=== PATIENT | female | born 1980 ===

== ENCOUNTER 2021-12-26 09:59 | Day surgery (SDC) | payer OTHER, SELFPAY ==
[2021-12-20 12:04] VITALS: BMI 39.2
--- NOTE | 2021-12-25 13:38 | HO.ANESPROP2 ---
Documented by User: Marita Juárez NP 12/25/21 13:39 HPI - Anesthesia Eval Consult details Narrative: 41yo F for Upper Endoscopy s/p gastric sleeve [facility] Past Medical History Medical History (Updated 12/20/21 @ 11:59 by María Bryson RN) Anxiety Asthma GERD (gastroesophageal reflux disease) Hiatal hernia HTN (hypertension) Surgical History Surgical History (Updated 12/20/21 @ 11:59 by María Bryson RN) History of repair of hiatal hernia History of sleeve gastrectomy Hx of abdominal surgery Hx of cervical discectomy Hx of section Hx of cholecystectomy Hx of laparoscopic gastric banding Social History Social History (Updated 12/20/21 @ 12:00 by María Bryson RN) Patient Tobacco Use Status: Former Tobacco user Quit Date: 2006 Tobacco use type: Cigarette Use of substances other than those prescribed or required for medical reasons: No Are you DNR?: No Advance Directives: No Advance Directives Information Provided: Yes Meds Allergies Allergy/AdvReac Type Severity Reaction Status Date / Time No Known Allergies Allergy Unverified 01/06/20 17:06 Home Medications Medication Instructions Recorded Confirmed Last Taken Type bupropion HCl 12/20/21 Unknown History clonazepam 1 mg tablet 1 mg PO BEDTIME 12/20/21 12/20/21 Unknown History omeprazole 20 mg capsule,delayed 40 mg PO DAILY 12/20/21 12/20/21 Unknown History release prazosin 1 mg capsule 1 mg PO BEDTIME 12/20/21 12/20/21 Unknown History Exam Exam Date and Time: December 25, 2021 1338 Height,Weight and Vital Signs: Height 5 ft Weight 91.172 kg Assessment and Plan Assessment Anesthesia Assessment: Chart Reviewed Documented by User: Nicolas Ibarra MD 12/26/21 10:46 [facility] Past Medical History Medical History (Updated 12/20/21 @ 11:59 by María Bryson RN) Anxiety Asthma GERD (gastroesophageal reflux disease) Hiatal hernia HTN (hypertension) Patient : No Family History Family history of problems with anesthesia: No Surgical History Surgical History (Updated 12/20/21 @ 11:59 by María Bryson RN) History of repair of hiatal hernia History of sleeve gastrectomy Hx of abdominal surgery Hx of cervical discectomy Hx of section Hx of cholecystectomy Hx of laparoscopic gastric banding History of Problems with Anesthesia: No Social History Social History (Updated 12/20/21 @ 12:00 by María Bryson RN) Patient Tobacco Use Status: Former Tobacco user Quit Date: 2006 Tobacco use type: Cigarette Use of substances other than those prescribed or required for medical reasons: No Are you DNR?: No Advance Directives: No Advance Directives Information Provided: Yes Meds Allergies Allergy/AdvReac Type Severity Reaction Status Date / Time No Known Allergies Allergy Unverified 01/06/20 17:06 Home Medications Medication Instructions Recorded Confirmed Last Taken Type bupropion HCl 12/20/21 Unknown History clonazepam 1 mg tablet 1 mg PO BEDTIME 12/20/21 12/20/21 Unknown History omeprazole 20 mg capsule,delayed 40 mg PO DAILY 12/20/21 12/20/21 Unknown History release prazosin 1 mg capsule 1 mg PO BEDTIME 12/20/21 12/20/21 Unknown History Exam Airway Mallampati Class: II TM Dist: <=3cm Neck ROM: Full Loose/Missing/Broken Teeth: No Heart: ok Lungs: ok Assessment and Plan Assessment Anesthesia Assessment: Anesthesia Plan Discussed and Chart Reviewed Final Anesthetic Review Family History of Problems with Anesthesia: No History of Problems with Anesthesia: No NPO: Yes ASA Class: II Final Preanesthetic Review: No Changes in Pt Med Stat, Meds/Allgs Chart Reviewed, Consent Obtained/Reviewed and Anes Risks/Benef Reviewed Patient Risk: Intermediate Procedure Risk: Intermediate Anesthetic Plan Anesthetic Plan: MAC: and Agree w/ Assess. and Plan Disposition: Standard PACU
[2021-12-26 10:20] VITALS: BP 119/81; PULSE 73; RESP 16; TEMP 36.3; O2SAT 98
[2021-12-26] MEDS: Lactated Ringers 1,000 ML 100 ML IVCONT (10:33)
[2021-12-26 10:43] LABS: UPreg QC Valid YES; Urine Pregnancy NEGATIVE (NEGATIVE)
[2021-12-26 11:55] VITALS: BP 80/55; PULSE 105; RESP 16; TEMP 36.3; O2SAT 92
--- NOTE | 2021-12-26 11:59 | PM.OP ---
Brief Operative Note Date of Service: 12/26/21 Pre-op diagnosis: GERD Post-op diagnosis: other (Reflux esophagitis, Gastritis, Hiatal hernia) Procedure: EGD with biopsies Surgeon: Alireza Hickey Anesthesia: MAC Was an [employer] used for this Procedure?: No Estimated blood loss (mL): 2.0 Pathology: other (A. Gastric antrum B. EG Junction at 32cm) Condition: stable Disposition: PACU
[2021-12-26 12:10] VITALS: BP 112/73; PULSE 75; RESP 16; O2SAT 98
[2021-12-26] MEDS: Acetaminophen 325 MG TABLET 650 MG PO (12:14)
[2021-12-26 12:25] VITALS: BP 129/85; PULSE 76; RESP 18; TEMP 36.3; O2SAT 98
--- NOTE | 2021-12-26 13:39 | OP_ITS ---
12/26/2021 SURGEON: Alireza Hickey MD INDICATIONS: The patient presents for evaluation of chronic gastroesophageal reflux. Full consent has been obtained from her for this, including risks of bleeding and perforation. PREOPERATIVE DIAGNOSIS: Chronic gastroesophageal reflux. POSTOPERATIVE DIAGNOSIS: Chronic gastroesophageal reflux, hiatal hernia, reflux esophagitis, gastritis. PROCEDURE PERFORMED: Esophagogastroduodenoscopy with biopsies. ESTIMATED BLOOD LOSS: COMPLICATIONS: ANESTHESIA: Preop medication used, monitored anesthesia care. ASSISTANTS: SPECIMENS: DESCRIPTION OF PROCEDURE: The patient was placed in the left lateral decubitus position. The Olympus video gastroscope was passed in the posterior oropharynx and upper esophagus under direct vision. The scope was passed slowly to the distal esophagus. The gastroesophageal junction appeared at 32 cm. There was evidence of irregularity, edema, friability, and short, less than 10 mm erosions. There was no ulceration, mass, nor stricture. The scope entered the stomach. There was a small hiatal hernia. The scope was advanced to the pylorus and the duodenum was cannulated to the descending portion. The duodenum including the bulb appeared normal without mass or ulceration. The scope was withdrawn back in the stomach. The gastric antrum had some areas of gastritis with some less than 10 mm erosions. There was no ulceration nor mass. There was good peristalsis. Biopsies were obtained from the gastric antrum. Extending from the mid antrum to the proximal stomach was a linear scar consistent with her sleeve gastrectomy along the greater curvature. I was able to retroflex the scope visualizing the proximal stomach carefully, which appeared normal, without any sign of mass or ulceration. I did not visualize any definitive evidence of a wrap. The scope was straightened and withdrawn back to the esophagus. Multiple biopsies were obtained at the gastroesophageal junction at 32 cm. Proximal to this, the esophageal mucosa appeared normal. The scope was withdrawn from the patient. She tolerated the procedure well and was returned to the recovery area in stable condition. IMPRESSION: 1. Hiatal hernia, gastroesophageal reflux, reflux esophagitis. 2. Gastritis. PLAN: The results of the biopsies will be checked. She reports that she is presently using omeprazole 40 mg twice a day with good relief of her reflux. She was advised not to use any aspirin or NSAIDs long-term. She was advised to continue her omeprazole. If H pylori is present in the gastric biopsies, I would recommend treating that at some point. She was advised to see me in several months for a followup visit. Given that she has already had 2 other gastric surgeries, I would not recommend any further surgery in regard to her reflux and hiatal hernia as long as her symptoms are being controlled with medication. MD GENNARO Brandt/REBECA / [id number] MTDD
== END 2021-12-26 13:23 | disposition home or self-care (01) ==
PROVIDERS: Nurse Practitioner; Visit Provider Internal Medicine
PROC: 0DJ08ZZ Inspection of Upper Intestinal Tract, Via Natural or Artificial Opening Endoscopic (ICD-10-PCS; CPT 43235; principal; 2021-12-26 11:30)
DX: K21.00 Gastro-esophageal reflux disease with esophagitis, without bleeding (principal); K29.50 Unspecified chronic gastritis without bleeding; K44.9 Diaphragmatic hernia without obstruction or gangrene; I10 Essential (primary) hypertension; J45.909 Unspecified asthma, uncomplicated; Z79.899 Other long term (current) drug therapy; Z98.84 Bariatric surgery status; Z90.49 Acquired absence of other specified parts of digestive tract; Z98.890 Other specified postprocedural states; Z87.891 Personal history of nicotine dependence
CPT/HCPCS: 43239; 81025; 88305; 88342

== ENCOUNTER → 2022-09-17 15:31 | Outpatient (BNVA) | payer OTHER, SELFPAY | PROVIDERS: Visit Provider Neurological Surgery ==

== ENCOUNTER 2022-11-11 10:31 | Outpatient (REF) | payer OTHER, SELFPAY ==
--- NOTE | ~2022-11-11 | MR_ITS ---
EXAMINATION: MR LUMBAR SPINE WITHOUT CONTRAST CLINICAL INFORMATION: Leg numbness, bilateral hand numbness, low back pain COMPARISON: None TECHNIQUE: MRI of the lumbar spine was obtained using routine sequences without contrast. FINDINGS: Mildly motion degraded examination. Trace levocurvature of the mid to lower lumbar spine. Normal lumbar lordosis is preserved. No significant spondylolisthesis. Vertebral body heights are maintained. There is no suspicious osseous lesion. Multilevel disc desiccation with preserved disc height. Mild stress related edema within the bilateral L4 and L5 pedicles. Suggestion of mild spinal canal narrowing on the basis of short pedicles with level by level detail as follows: L1-L2: Mild bilateral facet arthrosis. Mild spinal canal narrowing. No neural foraminal stenosis. L2-L3: Mild to moderate bilateral facet arthrosis with ligamentum flavum thickening. Mild spinal canal narrowing without neural foraminal stenosis. L3-L4: Shallow annular disc bulge and moderate bilateral facet arthrosis with ligamentum flavum thickening. 9 mm extracanalicular synovial cyst projecting posteriorly off the right facet joint into the right paraspinal soft tissues. Mild spinal canal narrowing and minimal left without right neural foraminal encroachment. L4-L5: Advanced right greater than left facet arthrosis with ligamentum flavum thickening and shallow annular disc bulge. Small right facet joint effusion. No spinal canal stenosis. Minimal bilateral neural foraminal encroachment. L5-S1: Shallow annular disc bulge with moderate to advanced left greater than right facet arthrosis. No spinal canal or neural foraminal stenosis. The conus medullaris terminates at the level of T12. The distal spinal cord is normal in appearance. . No epidural fluid collection, hematoma, or mass. There is mild fatty atrophy of the paraspinal musculature. Left renal cysts not requiring further imaging follow-up. The abdominal aorta is of normal contour and caliber. MR/MR lumbar spine wo con IMPRESSION: Suggestion of mild spinal canal narrowing on the basis of short pedicles superimposed mild spondylosis. No high-grade spinal canal or neural foraminal stenosis at any level. Multilevel mild spinal canal narrowing. Advanced facet arthropathy in the mid to lower lumbar spine with mild stress related edema within the bilateral L4 and L5 pedicles
== END 2022-11-11 10:32 | disposition home or self-care (01) ==
LOC: HO.MRI 10:31
PROVIDERS: Visit Provider Neurological Surgery
DX: G58.8 Other specified mononeuropathies (principal); M54.9 Dorsalgia, unspecified
CPT/HCPCS: 72148

== ENCOUNTER 2022-11-26 14:57 | Outpatient (REF) | payer OTHER, SELFPAY ==
--- NOTE | ~2022-11-26 | XR_ITS ---
EXAMINATION: XR LUMBOSACRAL SPINE WITH OBLIQUES CLINICAL INFORMATION: Dorsalgia COMPARISON: None available. TECHNIQUE: AP, both oblique, and lateral views of the lumbar spine. Lateral view of the lumbosacral junction. FINDINGS: There is normal lumbar lordosis. The vertebral heights, alignment and disc heights are normal. There is no visible acute fracture, dislocation or subluxation. No bony erosive changes. The soft tissues are normal. XR/XR lumbar spine 4V min IMPRESSION: Unremarkable lumbar spine exam.
== END 2022-11-26 14:58 | disposition home or self-care (01) ==
LOC: HO.HOSX 14:57
PROVIDERS: Visit Provider Neurological Surgery
DX: M54.9 Dorsalgia, unspecified (principal); R20.0 Anesthesia of skin; R20.2 Paresthesia of skin
CPT/HCPCS: 72110; 99212

== ENCOUNTER 2022-11-26 15:24 | Outpatient (AMB) | payer OTHER, SELFPAY ==
--- NOTE | 2022-11-26 16:05 | A.SPINEOV_ITS ---
Intake Intake Visit Reasons: MRI follow up Intake Note: Ms. Woodall is here today to f/u re: MRI also had x-rays done today. Net Trainer Required: No Allergies No Known Allergies Allergy (Unverified 01/06/20 17:06) Assessment & Plan Assessment & Plan (1) Numbness and tingling of both upper extremities: Code(s): R20.0 - Anesthesia of skin; R20.2 - Paresthesia of skin Plan Dear colleague, On 11/26/2022, Ms. Woodall came for follow-up to review the MRI of the lumbar spine and EMG results. The MRI of the lumbar spine, x-ray of the lumbar spine and EMG results were all normal. She states that the pain on the right side of her ribcage has disappeared in the meantime. Her main complaint today is numbness down her arms it increases with flexion. I told I would order an MRI of the cervical spine to make sure that the spinal cord is well decompressed. If this comes back normal then this is a residual symptom of her cervical myelopathy. Manoj Morse MD, PhD Spine [facility] Trained Neurosurgeon Director, [facility] Orders: Orders XR lumbar spine 4V min Today M54.9 - Dorsalgia, unspecified Coding Level of Care Code Est Pt Level 2 (73806) Diagnoses Numbness and tingling of both upper extremities R20.0; R20.2
== END 2022-11-26 16:25 | disposition home or self-care (01) ==
PROVIDERS: Visit Provider Neurological Surgery
DX: R20.0 Anesthesia of skin (principal); R20.2 Paresthesia of skin
CPT/HCPCS: 99212

== ENCOUNTER 2023-01-20 13:36 | Outpatient (REF) | payer OTHER, SELFPAY ==
--- NOTE | ~2023-01-20 | MR_ITS ---
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 Self-reported neck pain with right arm numbness and bilateral finger numbness or weakness. COMPARISON: None available. TECHNIQUE: MRI of the cervical spine was obtained using routine sequences with and without contrast. Intravenous contrast: Gadavist 9 mL. FINDINGS: Alignment: The cervical spine is anatomically aligned. Craniocervical Junction/C1-C2 Articulations: The atlantooccipital joints are intact and aligned bilaterally. There is mild retrolisthesis of the left C1-C2 facet joint which is nonspecific and could be secondary to some degree of head rotation. Visualized Intracranial Structures: Within normal limits. Vertebral Bodies: Vertebral body heights are well maintained. Disc Spaces and Endplates: There is ferromagnetic artifact partially obscuring the C5-C6 and C6-C7 levels consistent with previous ACDF procedures. Otherwise, the visualized intervertebral disc space heights and signal are well maintained. No significant spondylosis. Bone Marrow: Limited study due to metallic hardware artifact obscuring the C5, C6 and C7 levels. Within these limitations, no suspicious marrow replacing process or bone marrow edema is identified. No abnormal marrow enhancement is seen either above C5 or inferior to C7. Cannot evaluate for possible abnormal enhancement at C5-C6 and C6-C7 due to metallic hardware artifact. C2-C3: No disc herniation or canal stenosis. No significant DJD or neural foraminal stenosis. C3-C4: No disc herniation or canal stenosis. No significant DJD or neural foraminal stenosis. C4-C5: Small central disc protrusion with minimal indentation of the ventral thecal sac without cord impingement or canal stenosis. Minor uncinate process spurring noted on the left without significant facet arthrosis, with mild left-sided neural foraminal stenosis and a 7 mm perineural cyst in the outer left neural foramen. There is also a 6 mm cystic structure at the lateral aspect of the left facet joint which may reflect a synovial or ganglion cyst with no associated neural encroachment. C5-C6: Status post ACDF with posterolateral osteophytic ridging and mild flattening of the dural sac asymmetric to the left without cord impingement or canal stenosis. Mild uncinate process hypertrophic changes noted, left more than right with slight left-sided neural foraminal narrowing. C6-C7: Status post ACDF, with posterolateral disc osteophyte complex and flattening of the ventral dural sac without cord impingement. There is mild central canal stenosis. Mild bony productive changes are seen laterally with [id number] left and mild right-sided neural foraminal narrowing. C7-T1: No disc herniation or canal stenosis. Mild ligamentum flavum thickening noted with mild facet arthropathy bilaterally without significant neural foraminal stenosis. T1-T2: No disc herniation or canal stenosis. Minor facet arthropathy noted bilaterally without significant neural foraminal stenosis. Spinal Cord: The cervical and visualized upper thoracic spinal cord is normal in signal intensity throughout, without focal lesion, edema or syrinx and no abnormal spinal cord or leptomeningeal enhancement. Slight ventral cord flattening is noted at the C5-C6 asymmetric to the right consistent with a minimal degree of myelomalacia. Extracranial Soft Tissues: The visualized extracranial head/neck soft tissues are unremarkable within the limitations of the study. Signal voids are seen in the major arterial and venous structures. No prevertebral soft tissue edema/swelling or abnormal soft tissue enhancement. MR/MR cervical spine wo/w con IMPRESSION: 1. Status post ACDF procedures at C5-C6 and C6-C7 as discussed above with posterolateral disc osteophyte complex at C6-C7 with mild central canal stenosis, [id number] left and mild right-sided neural foraminal stenosis at this level. Slight left-sided bony neural foraminal narrowing at C5-C6. No neural impingement. 2. Small central disc protrusion at C4-C5 without cord impingement or canal stenosis. Minor uncinate process spurring on the left at this level with mild left-sided neural foraminal stenosis and a small synovial or ganglion cyst at the lateral aspect of the left facet joint without neural encroachment. 3. Slight degree of myelomalacia on the right at C5-C6 with otherwise normal appearance to the spinal cord. No abnormal spinal cord or leptomeningeal enhancement.
[2023-01-20] MEDS: gadobutroL 10 ML VIAL IVPUSH (14:33)
== END 2023-01-20 13:37 | disposition home or self-care (01) ==
LOC: HO.MRI 13:36
PROVIDERS: Visit Provider Neurological Surgery
DX: R20.0 Anesthesia of skin (principal); R20.2 Paresthesia of skin; Z98.1 Arthrodesis status
CPT/HCPCS: 72156; A9585

== ENCOUNTER 2024-02-12 19:38 | Emergency (ER) | payer OTHER, SELFPAY ==
--- NOTE | ~2024-02-12 | XR_ITS ---
EXAMINATION: XR CERVICAL SPINE CLINICAL INFORMATION: Pain, prior hardware. COMPARISON: MR cervical spine 01/20/2023. TECHNIQUE: 3 views of the cervical spine were obtained. FINDINGS: Redemonstration of ACDF at C5-C6 and C6-C7. No evidence of hardware fracture or increased gerhard-hardware lucency. No acute fracture or subluxation. Prominent anterior osteophytes at C5-C6 and C6-C7. Multilevel intervertebral disc height loss and uncovertebral hypertrophy better characterized on prior MRI. No peritoneal soft tissue thickening. Included portions of the lung apices are clear. XR/XR cervical spine 3V IMPRESSION: 1. ACDF at C5-C6 and C6-C7 without evidence of hardware failure or loosening. 2. No acute fracture or subluxation. Electronically signed by: Maria L Mills MD 02/12/2024 09:34 PM EDT
[2024-02-12 19:58] VITALS: BP 116/79; PULSE 101; RESP 18; TEMP 36.9; O2SAT 98; BMI 34.4
--- NOTE | 2024-02-12 20:00 | ED.GENADULT ---
HPI - General Adult General Chief complaint: General Medical Stated complaint: dizzy/neck pain Time Seen by Provider: 02/12/24 22:57 Source: patient Mode of arrival: ambulatory Limitations: no limitations History of Present Illness ED Provider: DR. Carter HPI narrative: 43-year-old female came in for evaluation of multiple symptoms. Patient s/p cervical spinal fusion many years ago presented today with right-sided neck pain and feeling dizzy, pain is shooting to the back of the head, no injury, no fall, no heavy lifting. Patient also is complaining of frequency urination with dysuria and burning sensation with urination. No fever, no chills, no photophobia, no weakness, no numbness. Related Data Home Medications ?Medication ?Instructions ?Recorded ?Confirmed bupropion HCl 12/20/21 clonazepam 1 mg tablet 1 mg PO BEDTIME 12/20/21 12/20/21 omeprazole 20 mg capsule,delayed 40 mg PO DAILY 12/20/21 12/20/21 release prazosin 1 mg capsule 1 mg PO BEDTIME 12/20/21 12/20/21 Previous Rx's ?Medication ?Instructions ?Recorded cefuroxime axetil 500 mg tablet 500 mg PO BID #14 tabs 02/12/24 cyclobenzaprine 10 mg tablet 10 mg PO TID PRN muscle spasm #10 02/12/24 tabs ibuprofen 600 mg tablet 600 mg PO Q8H PRN pain #14 tabs 02/12/24 Allergies Allergy/AdvReac Type Severity Reaction Status Date / Time No Known Allergies Allergy Verified 02/12/24 19:59 Review of Systems Review of Systems: All other systems are reviewed and are negative Constitutional: Reports as per HPI and Reports no additional constitutional complaints Eyes: Reports as per HPI and Reports no additional eye complaints Reports system reviewed and no additional complaints, except as documented Cardiovascular: Reports as per HPI and Reports no additional cardiovascular complaints Respiratory: Reports as per HPI and Reports no additional respiratory complaints Gastrointestinal: Reports as per HPI and Reports no additional gastrointestinal complaints Genitourinary: Reports no additional female genitourinary complaints Musculoskeletal: Reports no additional musculoskeletal complaints Skin/Breast: Reports system reviewed and no additional complaints, except as docu Psychiatric: Reports no additional psychiatric complaints Endocrine: Reports no additional endocrine complaints Hematologic/Lymphatic: Reports no additional hematologic/lymphatic complaints Allergic/Immunologic: Reports no additional allergic/immunologic complaints Reports system reviewed and no additional complaints, except as documented and Reports Abnormal speech present [facility] Past Medical History Medical History Anxiety Asthma HTN (hypertension) Hiatal hernia GERD (gastroesophageal reflux disease) Surgical History Hx of laparoscopic gastric banding Hx of abdominal surgery Hx of cervical discectomy Hx of section Hx of cholecystectomy History of repair of hiatal hernia History of sleeve gastrectomy Social History Social History Comment: medicated in pACU Patient Tobacco Use Status: Former Tobacco user Tobacco use type: Cigarette Advance Directives: No Advance Directives Information Provided: No Do you have a plan to hurt others: No Plan Physical Exam ED Vital Signs: Vital Signs - 24 hr 02/12/24 19:58 02/12/24 22:18 Temperature 98.4 F 98.3 F Pulse Rate 101 H 85 Respiratory Rate 18 16 Blood Pressure 116/79 96/66 Pulse Oximetry 98 96 Oxygen Delivery Method Room Air Room Air BMI result Body Mass Index 34.4 Vital signs have been reviewed and appear to be correct. Blood pressure elevated. Heart rate normal. Respiratory rate normal. Temperature normal. Oxygen saturation normal. Appearance: Alert. Oriented X3. No acute distress. Head: Normal external exam. Normocephalic. Atraumatic. No Valdivia signs noted. No raccoon eyes noted Eyes: PERRLA. EOMI. Conjunctiva and sclera normal. Eyelids normal. ENT: TM's Normal. Pharynx normal. Uvula midline. Moist mucous membranes. No trismus noted. No drooling noted. No muffled voice noted. Neck: Normal inspection. Neck supple. Spasm of right sternocleidomastoid muscle, Bilateral neck muscle FROM. No adenopathy. Thyroid Normal. No meningeal signs. No neck mass noted. CVS: Normal heart rate and rhythm. Heart sound normal. No murmurs noted. Pulses normal throughout. Respiratory: No respiratory distress. Painless inspiration. Breath sounds normal. No wheezes/rales/rhonchi noted. Chest nontender. No accessory muscle usage noted or decreased air movement noted. Abdomen: Soft and nontender. Bowel sounds normal in all 4 quadrants. No distention noted. No organomegaly noted. No visible injury noted. Back: No CVA tenderness. Full range of motion noted. Skin: Skin warm and dry. Normal skin color. Normal skin turgor. No rashes/lesions/lacerations noted. Extremities: No lower extremity edema. Extremities exhibit normal range of motion. Extremities nontender. Neuro: Oriented X 3. Cranial nerve exam: II-XII are grossly intact No motor deficit. No sensory deficit. Reflexes normal. Cerebellar exam: No [id number] dysmetria, able to walk toe to heel unsteady gait. Course Course Course Narrative: RME, this is a rapid medical exam performed by Luiz Bowles please refer to primary provider for complete H&P- 43 year old female presents for evaluation neck pain, She has previous c5/c6 and c6/c7 fusion with most recent MRI last year in January of 2023. Denies any specific injury but reports worsening pain and stiffness with radiating headache. Plan for x-yra to evaluate for hardware failure. Reevaluation(s) Reevaluation #1: 1. Cervical spine muscular spasm and pain, no fever, no chills, no photophobia neck is supple on exam, normal neuro exam including detail through the exam, patient's symptoms is likely due to muscular spasm. Cervical spine x-ray show hardware failure. 2. Dysuria, frequency urination UA is reflecting UTI will start on cefuroxime patient was instructed to drink plenty of fluids. 3. Instructed to return if any weakness or numbness of upper extremities. Time: 23:16 Medical Decision Making Differential Diagnosis Differential Diagnoses: The differential diagnosis associated with the presentation includes (Cervical hardware failure, myofascial cervical spasm, meningitis, UTI, electrolyte derangement, severe anemia.) Lab Data MDM Lab Attestation statement: I reviewed the patient's lab results. 02/12/24 21:35 02/12/24 21:35 Labs: Lab Results 02/12/24 02/12/24 Range/Units 21:20 21:35 WBC 3.3 L (4.8-10.8) X10*3/uL RBC 4.96 (4.20-5.50) X10*6/uL Hgb 11.9 L (12.0-16.0) g/dl Hct 39.0 (37.0-47.0) % MCV 78.6 L (80.0-98.0) fL MCH 24.0 L (27.0-33.0) pg MCHC 30.5 L (31.0-35.0) g/dl RDW 14.6 (11.0-16.0) % Plt Count 225 (160-400) X10*3/uL MPV 8.9 L (9.4-12.3) fL Immature Gran % (Auto) 0.0 (0.0-0.4) % Neut % (Auto) 49.6 (45-73) % Lymph % (Auto) 29.5 (20-40) % [place] % (Auto) 15.1 H (2-11) % Eos % (Auto) 5.2 H (0-4) % Baso % (Auto) 0.6 (0-2) % Lymph # (Auto) 1.0 L (1.2-4.9) X10*3/uL [place] # (Auto) 0.5 (0.1-1.2) X10*3/uL Eos # (Auto) 0.2 (0.0-0.4) X10*3/uL Baso # (Auto) 0.0 (0.0-0.2) X10*3/uL Abs Immat Gran (auto) 0.00 (0.00-0.03) X10*3/uL Absolute Neuts (auto) 1.6 L (2.0-8.3) x10*3/uL Absolute Nucleated RBC 0.000 (0.0-0.012) X10*3/uL Nucleated RBC % (auto) 0.0 (0.0-0.2) /100WBC Sodium 140 (135-145) mmol/L Potassium 3.7 (3.3-5.1) mmol/L Chloride 108 (96-108) mmol/L Carbon Dioxide 25 (22-29) mmol/L Anion Gap 11 L (12-20) BUN 8 L (9-16) mg/dL Creatinine 0.70 (0.5-1.4) mg/dL Estim Creat Clear Calc 96.8 Estimated GFR > 60 Random Glucose 96 (60-115) mg/dL Calcium 9.0 (8.4-10.2) mg/dL Total Bilirubin 0.1 (0.0-1.0) mg/dL AST 65 H (5-31) U/L ALT 74 H (0-31) U/L Alkaline Phosphatase 130 H (39-117) U/L Total Protein 7.7 (6.5-8.0) g/dL Albumin 4.2 (3.5-5.0) g/dL Lipase 15 (8-78) U/L Urine Color Yellow Urine Appearance Clear Urine pH 5.5 (5.0-9.0) Ur Specific [place] 1.020 (1.005-1.025) Urine Protein Negative (Neg-Trace) mg/dL Urine Glucose (UA) Negative (Negative) mg/dL Urine Ketones Negative (Negative) mg/dL Urine Blood Small (1+) H (Negative) Urine Nitrite Positive H (Negative) Ur Leukocyte Esterase Small (1+) H (Negative) Urine RBC 0-2 (0-2) /HPF Urine WBC 11-20 H (0-5) /HPF Ur Squamous Epith Cells 3-5 (0-2) /HPF Urine Bacteria 4+ (None Seen) Hyaline Casts 0-2 (0-2) /LPF Independent Interpretation I performed an independent interpretation of an: Plain X-Ray (Cervical spine:1. ACDF at C5-C6 and C6-C7 without evidence of hardware failure or loosening. 2. No acute fracture or subluxation. ) Radiology Impression Discussion of test interpretation with radiology: I have reviewed the radiologist's reading. Discharge Plan Discharge Clinical Impression: Cervical spine pain, UTI (urinary tract infection) Patient Disposition: Home, Self-Care Instructions: Urinary Tract Infection in Women (DC), Neck Pain (ED) Additional Instructions: Follow-up with your primary physician Prescriptions: New cefuroxime axetil 500 mg tablet 500 mg PO BID Qty: 14 0RF cyclobenzaprine 10 mg tablet 10 mg PO TID PRN (Reason: muscle spasm) Qty: 10 0RF ibuprofen 600 mg tablet 600 mg PO Q8H PRN (Reason: pain) Qty: 14 0RF No Action prazosin 1 mg Capsule 1 mg PO BEDTIME clonazepam 1 mg Tablet 1 mg PO BEDTIME Rx Instructions: administer 30 minutes before bedtime omeprazole 20 mg Capsule,Delayed Release(Dr/Ec) 40 mg PO DAILY bupropion HCl Print Language: Emirati
[2024-02-12 21:27] LABS: Appearance Urine Clear; Color Urine Yellow; Glucose Urine UA Negative (Negative); Leukocyte Esterase Urine Small (1+) (Negative); Nitrite Urine Positive (Negative); PH 5.5 (5.0-9.0); UMIC TRIGGER UACC YES; Urine Blood Small (1+) (Negative); Urine Ketones Negative (Negative); Urine Protein Negative (Neg-Trace)
[2024-02-12 21:39] LABS: Bacteria Urine 4+ (None Seen); Hyaline Casts Urine 0-2 /LPF (0-2); RBC Urine 0-2 /HPF (0-2); UACC Culture Trigger YES
[2024-02-12 21:40] LABS: Basophils Percent Auto 0.6 % (0-2); Eosinophils Absolute Auto 0.2 X10*3/uL (0.0-0.4); Eosinophils Percent Auto 5.2 % (0-4); Hemoglobin 11.9 g/dl (12.0-16.0); Lymphocytes Percent Auto 29.5 % (20-40); MANUAL DIFF FLAG NO; Mean Corpuscular HGB Conc 30.5 g/dl (31.0-35.0); Mean Corpuscular Volume 78.6 fL (80.0-98.0); Mean Platelet Volume 8.9 fL (9.4-12.3); Monocytes Absolute Auto 0.5 X10*3/uL (0.1-1.2); Monocytes Percent Auto 15.1 % (2-11); Neutrophils Absolute Auto 1.6 x10*3/uL (2.0-8.3); Neutrophils Percent Auto 49.6 % (45-73); Platelet Count 225 X10*3/uL (160-400); Red Blood Count 4.96 X10*6/uL (4.20-5.50); Red Cell Distribution Width 14.6 % (11.0-16.0); White Blood Count 3.3 X10*3/uL (4.8-10.8)
[2024-02-12 21:55] LABS: Alanine Aminotransferase 74 U/L (0-31); Albumin Level 4.2 g/dL (3.5-5.0); Alkaline Phosphatase 130 U/L (39-117); Anion Gap 11 (12-20); Aspartate Amino Transferase 65 U/L (5-31); Bilirubin Total 0.1 mg/dL (0.0-1.0); Blood Urea Nitrogen 8 mg/dL (9-16); Carbon Dioxide 25 mmol/L (22-29); Chloride 108 mmol/L (96-108); Creatinine Clr Calc Pharmacy 96.8; Estimated Glomerular Filt Rate > 60; Glucose Random 96 mg/dL (60-115); Lipase 15 U/L (8-78); Potassium 3.7 mmol/L (3.3-5.1); Sodium 140 mmol/L (135-145); Total Protein 7.7 g/dL (6.5-8.0)
[2024-02-12 22:18] VITALS: BP 96/66; PULSE 85; RESP 16; TEMP 36.8; O2SAT 96
[2024-02-12] MEDS: cefuroxime axetiL 500 MG TABLET PO (23:24)
[2024-02-12] MEDS: Ibuprofen 800 MG TABLET PO (23:24)
[2024-02-12] MEDS: Cyclobenzaprine HCl 10 MG TABLET PO (23:24)
[2024-02-13 00:15] VITALS: BP 96/66; PULSE 85; RESP 16; TEMP 36.8; O2SAT 96
== END 2024-02-13 00:17 | disposition home or self-care (01) ==
PROVIDERS: Emergency Provider Emergency Medicine
DX: N39.0 Urinary tract infection, site not specified (principal); R42 Dizziness and giddiness; M54.2 Cervicalgia; Z79.899 Other long term (current) drug therapy
CPT/HCPCS: 36415; 72040; 80053; 81001; 83690; 85025; 87086; 87088; 87186; 99283

== ENCOUNTER 2024-02-20 13:20 | Outpatient (AMB) | payer OTHER, SELFPAY ==
--- NOTE | 2024-02-20 14:14 | HO.SPINEOV ---
Intake Visit Reasons: neck pain, headaches and fátima hand numbness Intake Note: Ms. Jose C Lott is here today c/o neck pain and headaches with bilateral numbness of the hands and stiffness. Insecticide Supervisor Required: No Allergies No Known Allergies Allergy (Verified 02/20/24 14:19) Assessment & Plan Assessment & Plan (1) Numbness and tingling of both upper extremities: Code(s): R20.0 - Anesthesia of skin; R20.2 - Paresthesia of skin Category: Medical (2) Status post cervical spinal fusion: Code(s): Z98.1 - Arthrodesis status Category: Surgical Plan Dear colleague, On 02/20/2024 I sawAnna Lott. She is a 43-year-old female with a history of C5-C7 anterior diskectomy and fusion. She states that she developed severe pain in her neck radiating down both shoulders and hands 1 week ago. Now she also notices it it is going to her legs. She denies numbness or weakness. She went to the emergency room where she was prescribed pain medications and muscle relaxants which are not helping. On exam, she has a benign neurological exam. Abduction of the shoulders is very painful. The shoulders themselves are painful to touch. Differential diagnosis is a viral versus autoimmune response that causes these diffuse pains. I will repeat an MRI of the cervical spine and if this comes back normal then I recommended a referral to a supervisor reinforced steel placing. I spent 25 minutes in his consult to discuss plan an ordering test. Manoj Morse MD, PhD Spine Fellowship Trained Neurosurgeon Director, [facility] Orders: Orders MR cervical spine wo con Today R20.0 - Anesthesia of skin, R20.2 - Paresthesia of skin, Z98.1 - Arthrodesis status Coding Level of Care Code Est Pt Level 3 (83025) Diagnoses Numbness and tingling of both upper extremities R20.0; R20.2 Status post cervical spinal fusion Z98.1
== END 2024-02-20 14:42 | disposition home or self-care (01) ==
LOC: HO.HNS 13:20
PROVIDERS: Visit Provider Neurological Surgery
DX: R20.0 Anesthesia of skin (principal); R20.2 Paresthesia of skin; Z98.1 Arthrodesis status
CPT/HCPCS: 99213

== ENCOUNTER → 2024-02-20 13:20 | Outpatient (BNVA) | payer OTHER, SELFPAY | PROVIDERS: Visit Provider Neurological Surgery | DX: R20.0 Anesthesia of skin (principal); R20.2 Paresthesia of skin; Z98.1 Arthrodesis status | CPT/HCPCS: 99212 ==

== ENCOUNTER 2024-04-08 16:35 | Outpatient (REF) | payer OTHER, SELFPAY | END 2024-04-08 16:36 | disposition home or self-care (01) | LOC: HO.MRI 16:35 | PROVIDERS: Visit Provider Neurological Surgery | DX: R20.0 Anesthesia of skin (principal); R20.2 Paresthesia of skin; Z98.1 Arthrodesis status | CPT/HCPCS: 72141 ==

== ENCOUNTER 2024-06-11 15:03 | Outpatient (AMB) | payer OTHER, SELFPAY ==
[2024-06-11 15:10] VITALS: BMI 34.2
--- NOTE | 2024-06-11 15:10 | A.SPINEOV_ITS ---
Vital Signs 06/11/24 15:10 Height 5 ft Weight 175 lb BMI 34.2 Intake Visit Reasons: mid back pain, numbness and hand spasm Intake Note: Ms. Jose C Lott is here today c/o back and hand pain. 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 The pain is constant and not responsive to pain medications. She denies radiation either in her intercostal distribution or down the legs. No numbness or weakness. On exam, there is local pain on palpation. No neurological deficits. Most likely this patient is suffering from costochondritis. I would recommend a local injection as other measurements have not worked. There is no indication for additional imaging. She will let me office know if she wants to proceed. I spent 20 minutes in his consult for history physical and discussing plan of care. Manoj Morse MD, PhD Spine Fellowship Trained Neurosurgeon Director, [facility] [place] [facility] Coding Level of Care Code Est Pt Level 3 (04775) Diagnoses Midline thoracic back pain M54.6
--- OUTSIDE RECORDS SUMMARY | 2024-06-11 15:12 | XMS_ITS | Patient Health Record ---
Author Organization [facility] Address [address] [place] [phone] Care Team Providers Care Reinforcing Steel Machine Operator Name Role Phone Arlene Pierre Primary Care Provider Jennifer Alireza Pérez Unavailable [phone] Kevin Greenwood MD Unavailable Unavailable ALLERGIES No Known Allergies REASON FOR REFERRAL No Information MEDICATIONS Medication SIG (Take, Route, Fr equency, Duration) Notes Start Date End Date Status Prazosin HCl 1 MG Oral for 90 Active Omeprazole Active buPROPion HCl ER (XL) Active clonazePAM 1 MG Oral for 30 Ac tive IMMUNIZATIONS Vaccine Route Administration Date Status Comme nts Influenza Unknown 12/20/2020 Administered Influenza Unknown 05/29/2022 Refused SOCIAL HISTORY Tobacco Use: Social History Observation Description Date Details (start date - stop date) Former Smoker NA - NA Sex Assigned At : Social History Observation Description Sex Assigned At Unknown Tobacco Use/Smoking Question Answer Notes Patient is a former smoker How long has it been since you last smoked? > 10 years Alcohol Screen Question Answer Notes Did you have a drink contain ing alcohol in the past year? Yes How often did you have a dri nk containing alcohol in the past year? Monthly or less (1 point) How many drinks did you have on a typical day when you were drinking in the past year? 1 or 2 drinks (0 point) How often did you have 6 or more drinks on one occasion in the past year? Never (0 point) Points 1 Interpretation Negative PROBLEMS Problem Type ICD Code Onset Dates Problem Status W/U Status Risk SNOMED Code Notes Problem GERD (gastroesophageal reflux disease) (K21.9) Active confirmed Gastroesophagea l reflux disease (241372169) Problem Gastroesophageal reflux disease with esophagitis, unspecified whether hemorrhage (K21.00) Active confirmed Gastroesophagit is (65789744) Problem Gastritis (K29.70) Active confirmed Gas tritis (1596853) Problem Erosive esophagitis (K22.10) Active confirmed 18824129 Problem Chronic gastritis without bleeding, unspecified gastritis type (K29.50) Active confirmed 9928453 PLAN OF TREATMENT Future Test Test Name Order Date UPPER GI ENDOSCOPY 11/23/2021 Insurance Providers Payer Name Payer Address Payer Phone Subscriber Number Group Number Insured Name Patient Relationship to Insured Coverage Start Date Coverage End Date [facility] [employer] [facility] [address] [address] [place], [place] [id number] TASNEEM MARISCAL Self - patient is the insured MEDICAL (GENERAL) HISTORY Medical History History ICD Code GERD--hiatal hernia surgery as below; upper endoscopy in December of 2021 revealed a small hiatal hernia, erosive esophagitis, and erosive gastritis. Biopsies were negative for Mullins's esophagus and H. pylori. She has been using 40 mg of omeprazole twice a day since 2021. Obesity-hx of sleeve gastrectomy--2018-- lost about 80# Hypertension Asthma- seasonal Anxiety Denies UT,DM,CVA,renal disease Surgical History Surgery Date(Month/Year) Hiatal hernia surgery 11/21/2016 Cholecystectomy 2008 C-sectiom 07/08/2016 C-spine disc surgery for 2 discs 10/2021 Sleeve gastrectomy 2018 Panniculectomy 2020 Lap Band with transient weight loss 2010
--- OUTSIDE RECORDS SUMMARY | 2024-06-11 15:12 | XMS_ITS | Encounter Summary ---
Author Organization [facility] Address [address] [place] [address] Care Team Providers Care Hooker Machine Tender Name Role Phone Liz Mcleod MD Primary Care Provider Reason for Visit * Reason Onset Date Comments PROVIDER CALLBACK 05/18/2024 Encounter Details Date Type Department Care Team (Late st Contact Info) Description 05/18/2024 Telephone Adult Medicine - [address] [phone] Liz Mcleod MD [address] [place] [address] PROVIDER CALLBACK Social History Tobacco Use Types Packs/Day Years Used Date Smoking Tobacco: Former Cigarettes 1 05/28/1999 - 01/09/2012 Smokeless Tobacco: Former Alcohol Use Standard Drinks/Week Comments Yes 0 (1 standard drink = 0.6 oz pur e alcohol) Comments Unknown Sex and Gender Information Value Date Recorded Sex Assigned at Not on file Legal Sex Female 6:52 PM EST Gender Identity Not on file Sexual Orientation Not on file documented as of this encounter Progress Notes * Liz Mcleod MD - 05/28/2024 4:42 PM EST noted * Nell Harrison - 05/27/2024 12:43 PM EST Pt came into office asking about this. I printed out the 05/10 AVS from visit with Robert, it said right on the top what med he was suggesting. Pt is all set. * SANCHO Mason - 05/20/2024 5:46 PM EST Please send to PCP. * Eleazar Black MA - 05/20/2024 3:09 PM EST Looks like there is mention of reason for duloxetine in 05/10 note. Please advise if patient needs avisit for this. * Demarcus Weaver - 05/18/2024 3:21 PM EST Pt stated she was prescribed this meds -Duloxetine by her psychiatrist however she was advised she needs the notes from her pcp the reason she needs to be prescribed this meds. Pt has an appt with her psychiatrist on 05/31 and is requesting if she can be seen with her pcp before 05/31/24. Thx documented in this encounter Plan of Treatment Upcoming Encounters Date Type Department Care Team (Late st Contact Info) Description 06/16/2024 1:00 PM EST Office Visit Adult Medicine - [place] [address] [place] [address] Kristen Burrell NP [address] [place] [address] 06/30/2024 11:00 AM EDT Office Visit [facility] Hematology Oncology [address] [place] [phone] Javid Carmona MD [address] [place] [address] 07/12/2024 3:30 PM EDT Office Visit Adult Medicine - [place] [address] [place] [address] Liz Mcleod MD [address] [place] [address] documented as of this encounter Visit Diagnoses Not on filedocumented in this encounter Care Teams Hooker Machine Tender Relationship Specialty Start Date End Date Liz Mcleod MD [address] [place] [address] PCP - General Internal Medicine 05/10/24 documented as of this encounter
--- OUTSIDE RECORDS SUMMARY | 2024-06-11 15:12 | XMS_ITS | Clinical Summary ---
Author Organization [facility] [address] [facility] lding Address [address] [place] [address] Phone Care Team Providers Care 4 H Youth Development Specialist Name Role Phone Liz Mcleod MD Primary Care Provider Allergies No known active allergies Medications Ventolin HFA 90 mcg/actuation inhaler TAKE 2 PUFFS EVERY 4-6 HOURS NEEDED FOR SHORTNESS OF BREATH/WHEEZIN G 18 GRAM Active buPROPion XL (WELLBUTRIN XL) 300 mg 24 hr tablet Take 1 tablet (300 mg total) by mouth 1 (one) time each day in the morning. Active cholecalciferol , vitamin D3, 75 mcg (3,000 unit) tablet Take by mouth. Ac tive clonazePAM (KlonoPIN) 1 mg tablet TAKE ONE HALF TO A FULL TABLET BY MOUTH ONCE A DAY, NEEDED FOR PANIC Active clotrimazole-be tamethasone (LOTRISONE) 1-0.05 % cream Apply to area sparingly twice a day for up to two weeks 4 12/26/19 25 Active diclofenac (VOLTAREN) 1 % topical gel Apply 4 g topically. 4 Active gabapentin (NEURONTIN) 300 mg capsule One tab PO nightly 4 Active hydrOXYzine HCL (ATARAX) 10 mg tablet Take 1 tablet (10 mg total) by mouth. Active ibuprofen (ADVIL,MOTRIN) 600 mg tablet Take 1 tablet (600 mg total) by mouth every 8 (eight) hours if needed. for pain 4 Active methenamine hippurate (HIPREX) 1 gram tablet TAKE 1 TABLET BY MOUTH TWICE A DAY WITH VITAMIN C TABLET 4 Active omeprazole (PriLOSEC) [address] capsule Take 1 capsule (40 mg total) by mouth 1 (one) time each day. 4 Active prazosin (MINIPRESS) 2 mg capsule Take 1 capsule (2 mg total) by mouth at bedtime as needed. at bedtime 4 Active QUEtiapine (SEROquel) 25 mg tablet TAKE 1.5 TO 2 TABLETS BY MOUTH AT BEDTIME AND 1/2 TABLET TWICE A DAY, NEEDED FOR SLEEP Active traZODone (DESYREL) 50 mg tablet TAKE HALF TO ONE (0.5- 1) TABLET BY MOUTH AT BEDTIME, NEEDED Active nitrofurantoin, macrocrystal-mo nohydrate, (MACROBID) 100 mg capsule Take 1 capsule (100 mg total) by mouth 2 (two) times a day for 7 days. 14 each 5 05/19/19 25 amoxicillin (AMOXIL) 500 mg capsule Take 1 capsule (500 mg total) by mouth every 12 (twelve) hours for 5 days. 10 each 5 05/18/19 25 Encounters Date Type Department Care Team Description 05/28/2024 Lab Requisition [facility] - Main Lab [address] [facility] [place] [address] Sung Willson MD Dysuria 05/18/2024 Telephone Adult [address] [phone] Liz Mcleod MD PROVIDER CALLBACK 05/13/2024 Telephone Adult [address] [phone] Daniel Pandya PA Medication Reaction 05/10/2024 2:45 PM EST Office Visit Adult [address] [phone] Daniel Pandya PA Complaints of total body pain (Primary Dx); Abnormal urine odor 05/10/2024 Telephone Adult Medicine [place] [address] [place] [address] Liz Mcleod MD Hip Pain; Back Pain from Last 3 Months Immunizations Name Administration Dates Next Due H1N1 Inj Preservative Free 05/23/2009 Influenza Quadravalent, MDCK , 0.5ml, preservative free (Flucelvax) 6mo and older 02/10/2023,02/06/2021,01/06/2019 Influenza Quadravalent, MDCK , 0.5ml, with preservative (Flucelvax) 6mo and older 01/07/2017 Influenza trivalent, 0.5mL, preservative free (Fluarix; FluLaval; Fluzone) ages 6mo and older (Afluria) 3 years and older 02/22/2013 Influenza trivalent, with pr eservative (Fluzone; Afluria) 6mo and older 02/14/2015,03/01/2014,04/10/2011,02/05 Pneumococcal polysaccharide 23 valent (Pneumovax 23) 2yo and older 02/05/2009 Tdap Tetanus diptheria acell ular pertussis (Boostrix; Adacel) 7yo and older 05/07/2013,08/21/2012 Surgical History Surgery Date Site/Laterality Comments CHOLECYSTECTOMY 2003 PROCEDURE: HISTORICAL CHOLECYSTECTOMY SECTION PROCEDURE: UT DELIVERY ONLY; COMMENT: times 2 LAPAROSCOPIC GASTRIC BANDING 2010 PROCEDURE: LAP ADJUSTABLE GASTRIC BAND BREAST LUMPECTOMY 2007 PROCEDURE: ---- BREAST LUMP BIOPSY ---- ESOPHAGOGASTRODUODENOSCOPY 02/2015 PROCEDURE: UT ESOPHAGOGASTRODUODENOSCOPY TRANSORAL DIAGNOSTIC; COMMENT: ERosive esophagitis, irregular z line, retained food in stomach, tigh lap band OTHER SURGICAL HISTORY PROCEDURE: UT RPR PARAESOPH HIATAL HERNIA W/LAPT W/O MESH OTHER SURGICAL HISTORY 8 PROCEDURE: ---- OTHER ----; COMMENT: Laparoscopic sleeve gastrectomy TUBAL LIGATION 2016 PROCEDURE: HISTORICAL TUBAL LIGATION UMBILICAL HERNIA REPAIR 10/07 and 10/08 PROCEDURE: LAP UMBILICAL HERNIA REPAIR OTHER SURGICAL HISTORY 3 PROCEDURE: HISTORY OTHER; COMMENT: gastric bypass by at [facility] History Medical History Date Comments Unspecified asthma(493.90) DX:Un specified asthma(493.90) Anxiety state, unspecified DX:An xiety state, unspecified Hypertension 08/03/2010 DX:Hypertension; COMMENT: historical--no longer Hiatal hernia DX:Hiatal hernia DJD (degenerative joint dise ase) of knee DX:DJD (degenerative joint d isease) of knee Morbid obesity with BMI of 4 0.0-44.9, adult ([facility]) 08/06/2017 DX:Morbid obesity with BMI o f 40.0-44.9, adult ([facility]) Anemia DX:Anemia History of gastric surgery DX:Hi story of gastric surgery Depressive disorder DX:Depressiv e disorder Esophageal reflux DX:Esophageal reflux Panic attacks 04/04/2021 DX:Panic attacks Elevated liver enzymes DX:Elevat ed liver enzymes Abdominal discomfort in righ t upper quadrant DX:Abdominal discomfort in r ight upper quadrant Family History Medical History Relation Name Comments Hypertension Father Colon cancer Maternal Grandmother metasta tic to liver Arthritis Mother cardiac issues Diabetes Sister Other: autism Son Other: gout Uncle Relation Name Status Comments Daughter Alive Father Alive Maternal Grandmother Mother Alive Sister Alive Son Alive Uncle Social History Tobacco Use Types Packs/Day Years [...] on file Sexual Orientation Not on file Obstetrics History Last Filed Vital Signs Vital Sign Reading Time Taken Comments Blood Pressure 116/73 05/10/2024 2:41 PM EST Pulse 91 05/10/2024 2:41 PM EST Temperature 36.6 ??C (97.8 ??F) 05/10/2024 2:41 PM ES T Respiratory Rate - - Oxygen Saturation - - Inhaled Oxygen Concentration - - Weight 82.2 kg (181 lb 3.2 oz) 12/31/2023 10:14 AM EDT Height 152.4 cm (5') 12/31/2023 10:14 AM EDT Body Mass Index 35.39 12/31/2023 10:14 AM EDT Plan of Treatment Upcoming Encounters Date Type Department Care Team (Late st Contact Info) Description 06/16/2024 1:00 PM EST Office Visit Adult Medicine [facility] [address] [place] [phone] Kristen Burrell NP [address] [place] [address] 06/30/2024 11:00 AM EDT Office Visit [facility] Hematology Oncology [address] [place] [phone] Javid Carmona MD [address] [place] [address] 07/12/2024 3:30 PM EDT Office Visit Adult Medicine [facility] [address] [place] [phone] Liz Mcleod MD [address] [place] [address] Health Maintenance Due Date Last Done Comments Breast Cancer Screening 1980 Hepatitis A Vaccines (1 of 2 - Risk 2-dose series) 1999 Hepatitis B Vaccines (1 of 3 - 19+ 3-dose series) 1999 Pneumococcal Vaccine: Pediatrics (0 to 5 Years) and At-Risk Patients (6 to 64 Years) (2 of 2 - PCV) 02/05/2010 02/05/2009 Depression Screening 03/29/2022 HIV Screening 03/29/2022 Social Influencers of Health Screening 03/29/2022 DTaP,Tdap,and Td Vaccines (3 - Td or Tdap) 05/07/2023 05/07/2013, 08/21/2012 COVID-19 Vaccine ( season) 2023 09/03/2020, 08/05/2020 Influenza Vaccine (#1) 2023 , 02/06/2021, 12/20/2020, Additional history exists Cervical Cancer Screening: Pap Smear 02/23/2024 02/22/2021 Cholesterol Screening (Lipid Panel) 12/30/2028 12/31/2023 Hepatitis C Screening Completed 08/04/2022, 023 HIB Vaccines Aged Out No longer eligi ble based on patient's age to complete this topic HPV Vaccines Aged Out No longer eligi ble based on patient's age to complete this topic IPV Vaccines Aged Out No longer eligi ble based on patient's age to complete this topic MMR Vaccines Aged Out No longer eligi ble based on patient's age to complete this topic Meningococcal ACWY Vaccine Aged Out N o longer eligible based on patient's age to complete this topic Meningococcal B Vacine Aged Out No lo nger eligible based on patient's age to complete this topic RSV Immunization Patients Under 20 months Aged Out No longer eligible based on patient's age to complete this topic Varicella Vaccines Aged Out No longer eligible based on patient's age to complete this topic Procedures Procedure Name Priority Date/Time Associated Diagnosis Comments BACTERIAL IDENTIFICATION AND SUSCEPTIBILITY, AEROBIC Routine 05/27/2024 12:00 AM EST Dysuria PIERCE URINE CULTURE TUBE Routine 05/10/19 3:27 PM EST Abnormal urine odor URINALYSIS WITH REFLEX MICROSCOPIC AND CULTURE Routine 05/10/2024 3:27 PM EST Abnormal urine odor URINALYSIS WITH REFLEX MICROSCOPIC AND CULTURE Routine 05/10/2024 3:27 PM EST Abnormal urine odor CULTURE URINE Routine 05/10/2024 3:27 PM EST Abnormal urine odor HEPATITIS C SCREENING Routine 08/04/2022 PAP SMEAR Routine 02/22/2021 from Last 3 Months or Most Recently Relevant to Health Maintenance Results * (ABNORMAL) Bacterial identification and susceptibility, aerobic (05/27/2024 12:00 AM EST) Culture, Bacterial ID and Sensitivity Escherichia coli(A) SAYRA 05/29/2024 10:02 AM EST [facility] Other Urine specimen from urethra / Unknown 05/27/2024 05/28/2024 10:57 AM EST Narrative Organism Antibiotic Method Susceptibility Escherichia coli Amoxicillin/Clavulanate SAYRA 8 ug/ml: Susceptible Escherichia coli Ampicillin/Sulbactam SAYRA 16 ug/ml: Intermediate Escherichia coli Piperacillin/Tazobactam SAYRA <=4 ug/ml: Susceptible Escherichia coli Cefazolin (Urine) SAYRA 8 ug/ml: Susceptible Escherichia coli Cefoxitin SAYRA <=4 ug/ml: Susceptible Escherichia coli Ceftazidime SAYRA <=0.5 ug/ml: Susceptible Escherichia coli Ceftriaxone SAYRA <=0.25 ug/ml: Susceptible Escherichia coli Cefepime SAYRA <=0.12 ug/ml: Susceptible Escherichia coli Meropenem SAYRA <=0.25 ug/ml: Susceptible Escherichia coli Amikacin SAYRA 2 ug/ml: Susceptible Escherichia coli Gentamicin SAYRA <=1 ug/ml: Susceptible Escherichia coli Ciprofloxacin SAYRA <=0.06 ug/ml: Susceptible Escherichia coli Levofloxacin SAYRA <=0.12 ug/ml: Susceptible Escherichia coli Nitrofurantoin SAYRA <=16 ug/ml: Susceptible Escherichia coli Trimethoprim/Sulfamethoxazole SAYRA <=20 ug/ml: Susceptible Sung Willson MD LAB MICROBIOLOGY - GENERAL ORDER LOUISE Final Result [facility] [address] [place] [address], * (ABNORMAL) Urinalysis with reflex microscopic and culture (05/10/2024 3:27 PM EST) Specific [place] Urine 1.020 1.003 - 1.030 LAB URINALYSIS - AUTOMATED METHOD 05/10/2024 6:06 PM EST [facility] pH, Urine 5.5 5.0 - 8.0 pH LAB URINALYSIS - AUTOMATED METHOD 05/10/2024 6:06 PM [facility] Leukocytes, Urine Small(A) Negative LAB URINALYSIS - AUTOMATED METHOD 05/10/2024 6:06 PM [facility] Nitrite, Urine Negative Negative LAB URINALYSIS - AUTOMATED METHOD 05/10/2024 6:06 PM [facility] Protein, Urine Negative <=Trace mg/dL LAB URINALYSIS - AUTOMATED METHOD 05/10/2024 6:06 PM [facility] Glucose, Urine Negative Negative mg/dL LAB URINALYSIS - AUTOMATED METHOD 05/10/2024 6:06 PM [facility] Ketones, Urine Negative Negative mg/dL LAB URINALYSIS - AUTOMATED METHOD 05/10/2024 6:06 PM [facility] Urobilinogen , Urine 1.0 0.2 - 1.0 mg/dL LAB URINALYSIS - AUTOMATED METHOD 05/10/2024 6:06 PM [facility] Bilirubin, Urine Negative Negative LAB URINALYSIS - AUTOMATED METHOD 05/10/2024 6:06 PM [facility] Blood, Urine Negative Negative LAB URINALYSIS - AUTOMATED METHOD 05/10/2024 6:06 PM [facility] RBC, Urine 3.7 0 - 4 /HPF LAB URINALYSIS - AUTOMATED METHOD 05/10/2024 6:06 PM [facility] WBC, Urine 30.2(H) 0 - 4 /HPF LAB URINALYSIS - AUTOMATED METHOD 05/10/2024 6:06 PM [facility] Squamous Epithelial, Urine >100(H) 0 - 60 /LPF LAB URINALYSIS - AUTOMATED METHOD 05/10/2024 6:06 PM [facility] Bacteria, Urine Moderate(A) Negative /HPF LAB URINALYSIS - AUTOMATED METHOD 05/10/2024 6:06 PM [facility] Hyaline Casts, Urine 2.9 0 - 3 /LPF LAB URINALYSIS - AUTOMATED METHOD 05/10/2024 6:06 PM [facility] Urine Urine specimen obtained by clean catch procedure / Unknown Non-blood Collection / Unknown 05/10/2024 3:27 PM EST 05/10/2024 3:27 PM EST Daniel KINGSLEY LAB URINE ORDERABLES Final Res ult Performing Organization Address City/[facility]/ZIP Co de Phone Number [facility] [address] [place] [address], [place] [phone] * Pierce urine culture tube (05/10/2024 3:27 PM EST) Extra Tube Hold for add-ons. 05/10/2024 6:01 PM EST [facility] Comment:Auto resulted. Urine Urine specimen obtained by clean catch procedure / Unknown Non-blood Collection / Unknown 05/10/2024 3:27 PM EST 05/10/2024 3:27 PM EST Daniel Pandya [place] LAB URINE ORDERABLES Final Res ult Performing Organization Address [facility]/ZIP Co de Phone Number [facility] [address] [place] [address], [place] [phone] * (ABNORMAL) Culture urine (05/10/2024 3:27 PM EST) Culture, Urine 50,000-100,000 CFU/mL Escherichia coli(A) SAYRA 05/12/2024 7:48 AM EST [facility] Urine Urine specimen obtained by clean catch procedure / Unknown Non-blood Collection / Unknown 05/10/2024 3:27 PM EST 05/10/2024 6:06 PM EST Narrative Organism Antibiotic Method Susceptibility Escherichia coli Amoxicillin/Clavulanate SAYRA 4 ug/ml: Susceptible Escherichia coli Ampicillin/Sulbactam SAYRA 16 ug/ml: Intermediate Escherichia coli Piperacillin/Tazobactam SAYRA <=4 ug/ml: Susceptible Escherichia coli Cefazolin (Urine) SAYRA 8 ug/ml: Susceptible Escherichia coli Cefoxitin SAYRA <=4 ug/ml: Susceptible Escherichia coli Ceftazidime SAYRA <=0.5 ug/ml: Susceptible Escherichia coli Ceftriaxone SAYRA <=0.25 ug/ml: Susceptible Escherichia coli Cefepime SAYRA <=0.12 ug/ml: Susceptible Escherichia coli Meropenem SAYRA <=0.25 ug/ml: Susceptible Escherichia coli Amikacin SAYRA 2 ug/ml: Susceptible Escherichia coli Gentamicin SAYRA <=1 ug/ml: Susceptible Escherichia coli Ciprofloxacin SAYRA <=0.06 ug/ml: Susceptible Escherichia coli Levofloxacin SAYRA <=0.12 ug/ml: Susceptible Escherichia coli Nitrofurantoin SAYRA <=16 ug/ml: Susceptible Escherichia coli Trimethoprim/Sulfamethoxazole SAYRA <=20 ug/ml: Susceptible Daniel KINGSLEY LAB MICROBIOLOGY - GENERAL ORD ERABLES Final Result [facility] [address] [place] [address], * Hepatitis C Screening (08/04/2022) [facility] Hepatitis C Screening abstracted Historical Provider HEALTH MAINTENANCE Final Result * Pap smear (02/22/2021) 02/22/2021 Narrative HISTORICAL TESTING LAB RESULTING AGENCY - 03/12/2021 8:00 AM EST [id number] THINPREP PAP, IMAGED: NEGATIVE FOR SQUAMOUS INTRAEPITHELIAL LESION AND MALIGNANCY . NOTE: THE PAP TEST IS A SCREENING TEST WITH AN INHERENT FALSE NEGATIVE RATE. AUTOMATED PRESCREENING OF ALL LIQUID BASED SPECIMENS IS PERFORMED BY THE THINPREP IMAGING SYSTEM UNLESS OTHERWISE STATED GEE PITT(ASCP) (CASE ELECTRONICALLY SIGNED 03 10 2021) RESULT OF APTIMA HIGH RISK HPV ASSAY: HIGH RISK HPV: ??NEGATIVE (SEROTYPES 16,18,31,33,35,39,45,51,52,56,58,59,66,68) COMPLETED ON 2021-02-26 ADEQUACY: SATISFACTORY ENDOCERVICAL/TRANSFORMATION ZONE COMPONENT ABSENT. SOURCE: THINPREP PAP HPV ANY DX: ??REFLEX 16 AND 18, CERVICAL, IMAGED CLINICAL INFORMATION: HPV ANY DIAGNOSIS. NEG LAST PAP NEG, HPV NEG, Z12.4 Ba Mojica CN LAB CYTOLOGY ORDERABLES Final Result HISTORICAL TESTING LAB RESULTING AGENCY from Last 3 Months or Most Recently Relevant to Health Maintenance Insurance [facility] vzaar PLAN Care Teams 4 H Youth Development Specialist Relationship Specialty Start Date End Date Liz Mcleod MD [address] [place] [id number] PCP - General Internal Medicine 05/10/24
--- OUTSIDE RECORDS SUMMARY | 2024-06-11 15:12 | XMS_ITS | Encounter Summary ---
Author Organization [facility] Address [address] [place] [address] Care Team Providers Care Waste Machine Operator Name Role Phone Liz Mcleod MD Primary Care Provider Reason for Visit * Reason Onset Date Comments Medication Reaction 05/13/2024 Encounter Details Date Type Department Care Team ([facility] st Contact Info) Description 05/13/2024 Telephone Adult Medicine - [place] [address] [place] [phone] Daniel Pandya PA [address] [place] [address] Medication Reaction Social History Tobacco Use Types Packs/Day Years [...] as of this encounter Progress Notes * SANCHO Mason - 05/13/2024 5:13 PM EST New antibiotics sent to pharmacy. Thank you. * Jacquelyn Gardiner RN - 05/13/2024 4:09 PM EST Patient walk in. Spoke with patient. C/o nausea and vomiting since starting macrobid yesterday. Denies swelling of the lips/tongue/throat. Has taken a total of 3 doses. Last vomited 2 hours ago. Urinating but has slowed however reports she has not tried to drink anything this afternoon. No fever. Advised not to take the macrobid tonight. Fluids as tolerated, water, gatorade. Advised if worsening abdominal pain, continued vomiting, no urination or if fever develops or starts with diarrhea should go to the ER. Agrees Will forward to prescriber. ? Change antibiotic? * Nell Hunter - 05/13/2024 4:00 PM EST Pt came into the office, says the medication given to her by Robert yesterday is making her very sick. Stomach pain worse, vomiting, nausea, dry mouth. nitrofurantoin, macrocrystal-monohydrate, (MACROBID) 100 mg capsule [[id number]] Order Details Dose: 100 mg Route: oral Frequency: 2 times daily Dispense Quantity: 14 each Refills: 0 Sig: Take 1 capsule (100 mg total) by mouth 2 (two) times a day for 7 days. documented in this encounter Plan of Treatment Upcoming Encounters Date Type Department Care Team (Late st Contact Info) Description 06/16/2024 1:00 PM EST Office Visit Adult Medicine [facility] [address] [place] [address] Kristen Burrell NP [address] [place] [address] 06/30/2024 11:00 AM EDT Office Visit [facility] Hematology Oncology [address] [place] [phone] Javid Carmona MD [address] [place] [address] 07/12/2024 3:30 PM EDT Office Visit Adult Medicine - [place] [address] [place] [address] Liz Mcleod MD [address] [place] [address] documented as of this encounter Visit Diagnoses Not on filedocumented in this encounter Care Teams Waste Machine Operator Relationship Specialty Start Date End Date Liz Mcleod MD [address] [place] [address] PCP - General Internal Medicine 05/10/24 documented as of this encounter
--- OUTSIDE RECORDS SUMMARY | 2024-06-11 15:12 | XMS_ITS | Encounter Summary ---
Author Organization [facility] Address [address] [place] [address] Care Team Providers Care Manager Ambulatory Name Role Phone Liz Mcleod MD Primary Care Provider Encounter Details Date Type Department Care Team (Late Contact Info) Description 05/28/2024 Lab Requisition [facility] - Main Lab [address] [facility] [place] [phone] Sung Willson MD [address] [phone] Dysuria Social History Tobacco Use Types Packs/Day Years [...] on file documented as of this encounter Plan of Treatment Upcoming Encounters Date Type Department Care Team (Late Contact Info) Description 06/16/2024 1:00 PM EST Office Visit Adult Medicine - [place] [address] [place] [address] Kristen Burrell NP [address] [place] [address] 06/30/2024 11:00 AM EDT Office Visit [facility] Hematology Oncology [address] [place] [phone] Javid Carmona MD [address] [place] [address] 07/12/2024 3:30 PM EDT Office Visit Adult Medicine - [place] [address] [place] [address] Liz Mcleod MD [address] [place] [address] documented as of this encounter Procedures Procedure Name Priority Date/Time Associated Diagnosis Comments BACTERIAL IDENTIFICATION AND SUSCEPTIBILITY, AEROBIC Routine 05/27/2024 12:00 AM EST Dysuria documented in this encounter Results * (ABNORMAL) Bacterial identification and susceptibility, aerobic (05/27/2024 12:00 AM EST) Culture, Bacterial ID and Sensitivity Escherichia coli(A) SAYRA 05/29/2024 10:02 AM EST [facility] Other Urine specimen from urethra / [...] Escherichia coli Trimethoprim/Sulfamethoxazole SAYRA <=20 ug/ml: Susceptible us Sung Willson MD LAB MICROBIOLOGY - GENERAL ORDER LOUISE Final Result [facility] [address] [place] [address], documented in this encounter Visit Diagnoses Diagnosis Dysuria documented in this encounter Care Teams Manager Ambulatory Relationship Specialty Start Date End Date Liz Mcleod MD [address] [place] [id number] PCP - General Internal Medicine 05/10/24 documented as of this encounter
--- OUTSIDE RECORDS SUMMARY | 2024-06-11 15:12 | XMS_ITS | Clinical Summary ---
Author Organization [facility] Address [address] [place] [address] Care Team Providers Care Diesel Trailer Mechanic Name Role Phone Mani Juarez PA-C Primary Care Provider [phone] Allergies No known active allergies Medications No known medications Active Problems No known active problems Social History Tobacco Use Types Packs/Day Years Used Date Smoking Tobacco: Former Smokeless Tobacco: Never Alcohol Use Standard Drinks/Week Comments Yes 0 (1 standard drink = 0.6 oz pur e alcohol) Social Sex and Gender Information Value Date Recorded Sex Assigned at Not on file Gender Identity Not on file Sexual Orientation Not on file Job Start Date Occupation Industry Not on file Not on file Not on file Last Filed Vital Signs Vital Sign Reading Time Taken Comments Blood Pressure 123/82 08/07/2023 2:50 PM EDT Pulse 91 08/07/2023 2:50 PM EDT Temperature 36.5 ??C (97.7 ??F) 08/07/2023 2:50 PM ED T Respiratory Rate - - Oxygen Saturation 99% 08/07/2023 2:50 PM EDT Inhaled Oxygen Concentration - - Weight 83.9 kg (185 lb) 08/07/2023 2:50 PM EDT Height - - Body Mass Index - - Plan of Treatment Health Maintenance Due Date Last Done Comments Hepatitis B Vaccines (1 of 3 - 3-dose series) 1980 COVID-19 Vaccine (#1) 1980 Depression Screening 1992 Preventative Health Evaluation 1998 Cervical Cancer Screening (Pap Smear) 2001 DTap / Tdap / Td (3 - Td or Tdap) 05/07/2023 05/07/2013, 08/21/2012 Influenza Vaccine (#1) 2023 , 02/06/2021, 01/06/2019, Additional history exists Pneumococcal Vaccine Aged Out 02/05/2009 No long er eligible based on patient's age to complete this topic Hepatitis C Screening Completed 08/04/2022 RSV Ped < 20 months Aged Out No longe r eligible based on patient's age to complete this topic Care Teams Diesel Trailer Mechanic Relationship Specialty Start Date End Date Mani Juarez PA-C PCP - General Medical Services 06/04/21
== END 2024-06-11 16:03 | disposition home or self-care (01) ==
PROVIDERS: Visit Provider Neurological Surgery
DX: M54.6 Pain in thoracic spine (principal)
CPT/HCPCS: 99213

== ENCOUNTER → 2024-06-11 15:03 | Outpatient (BNVA) | payer OTHER, SELFPAY | PROVIDERS: Visit Provider Neurological Surgery | DX: M54.6 Pain in thoracic spine (principal) | CPT/HCPCS: 99212 ==